=== PATIENT | male | born 1965 | race Caucasian/White ===

== ENCOUNTER 2016-09-18 11:09 | Day surgery (SDC) | payer MEDICARE ==
[~2016-09-18] VITALS: Ht 182.9 cm; Wt 72.6 kg
[~2016-09-18 11:09] MED LIST: ALBU18HF INH; ATOR20TA65 PO; CLOZ100T6 PO; DIAZ10TA3 PO; DIAZ5TAB3 PO; DOCU-41 PO; ESCI20TA38 PO; GLYC1TAB11 PO; HYDR50CA3 PO; LORA0.5T PO; Lactated Ringer's 1,000 ML IV ONE; MELA3TAB35 PO; METH750T3 PO; METO10TA3 PO; MULT1CAP33 PO; OLAN20TA3 PO; OMEP20CA11 PO; OXAP-1 PO; PANT40TA3 PO; PROP10TA8 PO; QUET100T PO; QUET300T PO; TEMA15CA3 PO; TIOT4MIS5 IH; ZIPR60CA18 PO; ZLP5T PO
[2016-09-18] MEDS ORDERED: Propofol 10,000 mCg/mL 20 mL Inj ONE (11:10)
[2016-09-18 12:32] VITALS: BP 127/91; PULSE 84; RESP 16; O2SAT 100
--- NOTE | 2016-09-18 12:33 | PCM.HPANE ---
Patient Data Surgeon Admitting Provider: Attending Provider:Andres Street MD Primary Care Physician:Celestina Gonzalez DO Other Provider:Lilian Rutherford Anesthesia Reason for Visit Constipation, Gerd Ht/WT & BMI Height (Feet): 6 Height (Inches): 0 Weight (Kilograms): 72.57 Body Mass Index 21.00 Allergies Coded Allergies: atomoxetine HCl (Verified Allergy, Intermediate, rash, 06/27/15) lamotrigine (Verified Allergy, Intermediate, RASH, 06/27/15) sertraline HCl (Verified Allergy, Intermediate, rash, 06/27/15) Haloperidol Lactate (Verified Allergy, Unknown, 06/27/15) aripiprazole (Verified Allergy, Unknown, 09/17/16) bupropion HCl (Verified Allergy, Unknown, 06/27/15) cyclobenzaprine (Verified Allergy, Unknown, 09/17/16) fluoxetine (Verified Allergy, Unknown, 09/17/16) fluphenazine HCl (Verified Allergy, Unknown, 06/27/15) fluphenazine enanthate (Verified Allergy, Unknown, 06/27/15) haloperidol (Verified Allergy, Unknown, 06/27/15) nortriptyline (Verified Allergy, Unknown, 09/17/16) paroxetine (Verified Allergy, Unknown, 09/17/16) perphenazine (Verified Allergy, Unknown, 06/27/15) phenytoin (Verified Allergy, Unknown, 09/17/16) risperidone (Verified Allergy, Unknown, 06/27/15) thiothixene (Verified Allergy, Unknown, 09/17/16) venlafaxine HCl (Verified Allergy, Unknown, 06/27/15) iloperidone (Verified Adverse Reaction, Unknown, 09/17/16) Seizures Past Anesthesia History Anesthesia History: Denies:: Abnormal Airway, Anesthesia Reactions, Difficult Intubation, Fam Anesthesia Reaction, Fam Malignant Hypertherm, Malignant Hyperthermia Diabetes History Hx Diabetes?: No MRSA MRSA: No Medications Active Scripts Temazepam (Restoril)15 Mg Oievioa98 Mg PO HS 30 Days Prov:Amadeo Perdomo MD 08/20/15 Atorvastatin Calcium 20 Mg Dxrsyq04 Mg PO HS #30 TABLET Ref 0 Prov:Murali Garcia MD 07/02/15 Reported Medications Albuterol Sulfate (Ventolin HFA Inhaler)200 Puff/18 Gm Inhaler2 Puff INH Q4 PRN For Wheezing #1 INHALER Ref 0 09/17/16 Tiotropium [place] (Spiriva Respimat)1.25 Mcg/Actuation Mist.inhal2 Puffs IH DAILY 09/17/16 Quetiapine Fumarate (Seroquel)300 Mg Xdzaog222 Mg PO BID Ref 0 09/17/16 Quetiapine Fumarate (Seroquel)100 Mg Fvqutd353 Mg PO HS Ref 0 09/17/[address] 40 Mg Tablet.dr40 Mg PO DAILY Ref 0 09/17/16 Multivitamin (Multivitamins)1 Each Capsule1 Each PO DAILY 09/17/16 Metoclopramide 10 Mg Vtvrds36 Mg PO QID Ref 0 09/17/16 Lorazepam 0.5 Mg Tablet0.5 Mg PO TID PRN For Anxiety Ref 0 09/17/16 Escitalopram Oxalate 20 Mg Jmfpio06 Mg PO DAILY 30 Days Ref 0 09/17/16 Clozapine 100 Mg Weqgrm583 Mg PO BID Ref 0 09/17/16 Discontinued Reported Medications Olanzapine (Zyprexa)20 Mg Qwmofh78 Mg PO DAILY Ref 0 09/17/16 Ziprasidone 60 Mg Okylhms48 Mg PO BID 30 Days 09/17/16 Oxaprozin 600 Mg Kicaci284 Mg PO BID 09/17/16 Omeprazole 20 Mg Capsule.dr20 Mg PO DAILY Ref 0 09/17/16 Methocarbamol 750 Mg Tablet1-2 Mg PO Every 3 days PRN For Spasm Ref 0 09/17/16 Melatonin 3 Mg Tablet3 Mg PO HS 09/17/16 Diazepam 10 Mg [place]69 Mg PO HS Ref 0 09/17/16 Diazepam 5 Mg Tablet5 Mg PO MORNING Ref 0 09/17/16 Propranolol HCl 10 Mg Uvcnzv74 Mg PO TID PRN For Anxiety 90 Days Ref 0 07/18/15 [oxaprozine] No Conflict Check 07/18/15 Discontinued Scripts Docusate Sodium (Colace)100 Mg Sozhmkj821 Mg PO DAILY 30 Days Prov:Amadeo Perdomo MD 08/20/15 Zolpidem (Ambien)5 Mg Wfwuzs81 Mg PO HS 30 Days Prov:Amadeo Perdomo MD 08/20/15 Hydroxyzine Pamoate (HydrOXYzine Pamoate)50 Mg Tmdgqvc820 Mg PO HS 30 Days Prov:Amadeo Perdomo MD 6/6/16 Glycopyrrolate 1 Mg Tablet4 Mg PO HS 30 Days Prov:Amadeo Perdomo MD 08/20/15 Escitalopram Oxalate 10 Mg Ltysuy54 Mg PO DAILY 30 Days Prov:Amadeo Perdomo MD 08/20/15 Clozapine 100 Mg Eysqmk539 Mg PO BID 30 Days Prov:Amadeo Perdomo MD 08/20/15 Methocarbamol 500 Mg Aszhfa359 Mg PO BID 30 Days Prov:Amadeo Perdomo MD 08/20/15 History History of ENT Problems?: No HEENT History: Denies:: Abnormal Airway Difficult Intubation Dysphagia Hearing Problem Denture Type: None Teeth Condition: Within Normal Limits Other HEENT Pertinent History: GLASSES Hx of Heart Problems?: No Cardiovascular History: Denies:: AICD Atrial Fibrillation Chest Pain Congestive Heart Failure Hypertension Pacemaker Valvular Heart Disease Other Cardiac History: MITRAL AND TRICUSPID LEAKING VALVES? HEART FUNCTION 60% Other History/Comments Cardiac ROS negative Hx of Respiratory Problem?: Yes Respiratory History: Positive for:: COPD (SPIRIVA AND VENTOLIN) Tuberculosis (Has a positive PPD from prior exposure, gets X-ray yearly) Other History/Comment Well controlled asthma, last MDI was yesterday, function at baseline Hx Neurologic Problems?: No Neurological History: Denies:: CVA Hx of GI Problems?: Yes Other History/Comment constipation Hx of Problems?: No Hx Musculoskeletal Problems?: No Musculoskeletal History: Denies:: Fibromyalgia Joint Replacement Psycho Social History: Positive for:: Anxiety (WORK IN PROGRESS) Bipolar Disorder Hx Depression (CONTROLLED) Suicide Attempt Other History/Comment schitzophrenia Hx Surgeries?: Yes (Leg reconsruction 2008) Hx Any Other Health Problems?: Yes Other History: Positive for:: Hospitalization Hx Diabetes: No Other Pertinent History: PARANOID Hx Alcohol Use: NoHx Substance Use: No Smoking Status: Current Every Day Smoker Have You Smoked inLast 12 mo: Yes Stop/Bang Treated for Sleep Apnea?: No Do You Have a CPAP Machine?: No S-Snoring: Do You Snore Loudly: No T-Tired: feel tired, fatigued: No O-Obsered: Observed not breath: No P-Blood Pressure: treated: No B- Body Mass Index > 35 kg/m2: No A- Age over 50: Yes N- Neck Large Circumference: No G- Gender Male: No ARNOLDO Total Score: 1 Risk Assessment Category Category 1A: Patient has history of documented sleep apnea, and HAS NOT received any narcotic, sedative or anesthesia administration during this stay. Category 1B: Patient has history of documented sleep apnea, and HAS received any narcotic , sedative or anesthesia administration during this stay Category 2: Patient has SUSPECTED Obstructive Sleep Apnea, and HAS received any narcotic , sedative or anesthesia administration during this stay. Category 3: Patient has SUSPECTED Obstructive Sleep Apnea and HAS NOT received narcotic, sedative or anesthesia administration during this stay. Category 4: Outpatient in Procedural Areas with known sleep apnea or who screen positive for High Risk via the STOP/BANG questionnaire. Exam Exam General Appearance: Alert, Oriented X3, Cooperative HEENT/AIRWAY: MP 2 Lungs: Clear to Auscultation Heart: Exam Unremarkable Plan Impression Patient chart reviewed, patient interviewed and anesthestic plan with risks, benefits, and alternatives discussed, and informed consent obtained. NPO per Anesth. Guidelines: Yes ASA Physical Status: ASA3 Severe Disease Anesthetic Plan: TIVA Bene/Risks/Altern/Consents: Yes HP Complete Prior to Induction: Yes Brian Casanova MD Sep 18, 2016 12:33
[2016-09-18 13:10] VITALS: BP 122/83; PULSE 84; RESP 16; O2SAT 100
--- NOTE | 2016-09-18 13:12 | PCM.ANEP1 ---
Post Anesthesia PACU Phase 1 Assessment Vital Signs Vital Signs Date Time Temp Pulse Resp B/P Pulse Ox O2 Delivery O2 Flow Rate FiO2 09/18/16 13:10 84 16 122/83 100 Room Air 09/18/16 12:32 36.5 84 16 127/91 100 Room Air Anesthetic Administered: TIVA Level of Alertness: Awake, talking LERNER's with Equal Strength: Yes Pain: No Nausea or Vomiting: No CV Function & Hydration Stable: Yes Airway Device: Oxygen Delivery: Nasal Cannula Lungs: Clear to Auscultation Dermatome Level: Full Sensation PACU Phase 2 Assessment Complications: No Follow up Care: No Patient Instructions Provided: N/A Brian Casanova MD Sep 18, 2016 13:12
[2016-09-18 13:19] VITALS: BP 127/89; PULSE 80; RESP 16; O2SAT 100
--- NOTE | 2016-09-18 13:35 | ENDO ---
[address] [address] ENDOSCOPY PROCEDURE PATIENT: PAYAM NEWMAN : 1965 MR#: [id number] ADMIT: 09/18/2016 JOB ID: [id number] DATE: 09/18/2016 PROCEDURE: Esophagogastroduodenoscopy. INDICATION: Gastroesophageal reflux. Please see Dr. Bryson Casanova's anesthesia report for details regarding ASA classification, Mallampati score and medications. INSTRUMENT USED: GIF H 180 J. PROCEDURE DETAILS: After informed consent was obtained, the patient was brought into the GI suite where he was placed on oxygen via nasal cannula and monitored with continuous pulse oximeter, telemetry and blood pressure monitoring. A time-out was performed. Then, he was placed in the left lateral decubitus position and medications were administered for sedation. A bite block was placed. The standard EGD scope was inserted through the bite block and advanced under direct visualization to the second portion of the duodenum. FINDINGS: 1. Normal appearing duodenal bulb, first and second portion. Multiple random biopsies were obtained. 2. Normal appearing pylorus. In the antrum and body of stomach, there were streaks of old blood which we were able to clear with irrigation and suctioning. No obvious ulcers were seen. There was evidence of gastritis as there was inflammation and edema. Multiple random biopsies were obtained throughout the antrum and body of the stomach. 3. Retroflexed views in the gastric body revealed a normal-appearing cardia and fundus. 4. The GE junction was at approximately 47 cm. Extending up to 42 cm were scattered areas of ulceration consistent with ulcerative esophagitis. IMPRESSION: 1. LA Class A ulcerative esophagitis. 2. Gastritis. RECOMMENDATIONS: 1. Await biopsy results. 2. Reflux precautions. Continue PPI. 3. Proceed to colonoscopy. COMPLICATIONS: None. ESTIMATED BLOOD LOSS: Less than 5 mL. PROCEDURE PERFORMED: Colonoscopy. INDICATION: Constipation. Please see above for ASA classification, Mallampati score and medications. INSTRUMENT USED: PCF H 180 AL. PREPARATION QUALITY: Was poor. PROCEDURE DETAILS: After completion of the EGD examination, the patient was turned, then a digital rectal examination was performed, which was unremarkable. The colonoscope was then inserted into the rectum and advanced to the sigmoid colon. I was unable to visualize upstream lumen secondary to poor prep, and at this point, the colonoscope was withdrawn and the procedure was aborted. IMPRESSION: Poor prep. RECOMMENDATIONS: Repeat colonoscopy with a two day prep. COMPLICATIONS: None. ESTIMATED BLOOD LOSS: 0.
--- NOTE | 2016-09-25 09:30 | PATH ---
SURGICAL PATHOLOGY Attending Physician:Niurka Woodard CASE STATUS: Signed Out PATIENT NAME: PAYAM NEWMAN II PID: [id number] : 1965 DATE COLLECTED:09/18/2016 00:00 SPECIMEN: 1: Duodenum, Biopsy 2: Gastric, Biopsy CLINICAL HISTORY: 1). DUODENAL BIOPSY 2). GASTRIC BIOPSY RANDOM AND RULE OUT H.PYLORI FINAL DIAGNOSIS: 1. Duodenum Biopsy: Portions of duodenal mucosa with no diagnostic abnormality. Negative for active inflammation, features of sprue, dysplasia, and malignancy. 2. Gastric Biopsy, Random: Portions of gastric body-type mucosa with no diagnostic abnormality. No definite H. pylori organisms identified by H&E stain. Immunohistochemistry studies pending; results will be reported as an addendum. Negative for intestinal metaplasia, dysplasia, and malignancy. ICD10: K29.7 GROSS DESCRIPTION: Received two formalin-filled containers, both labeled with the patient' s name: 1. In a container labeled "duodenal", the specimen consists of four tiny portions of tissue which aggregate to 0.2 x 0.2 x 0.2 cm. The specimen is entirely submitted in cassette 1A. 2. In a container labeled "gastric", the specimen consists of a 0.3 x 0.3 x 0.2 cm, hamilton-hallman, friable portion of tissue, which is entirely submitted in cassette 2A. ([id number]) ICD-9 CODES: CPT CODES: 1: 36149 2: 11197 Electronically Signed Out Rosana Guevara MD [facility] Pathology [facility] [address] [facility], [place] [address] Technical component performed at [facility], [facility] [address], [place], [address]
== END 2016-09-18 23:59 | disposition home or self-care (01) ==
LOC: END 11:09
PROVIDERS: ATTEND Internal Medicine Gastroenterology
DX: K59.00 Constipation, unspecified (principal); K21.9 Gastro-esophageal reflux disease without esophagitis; K22.10 Ulcer of esophagus without bleeding; K29.70 Gastritis, unspecified, without bleeding; F32.9 Major depressive disorder, single episode, unspecified; E78.5 Hyperlipidemia, unspecified; G62.9 Polyneuropathy, unspecified; Z79.899 Other long term (current) drug therapy; J44.9 Chronic obstructive pulmonary disease, unspecified; F41.9 Anxiety disorder, unspecified; F31.9 Bipolar disorder, unspecified
CPT/HCPCS: 43239; 45330; J7120